=== PATIENT | female | born 1990 | race Caucasian/White ===

== ENCOUNTER 2024-06-21 08:08 | Emergency (ER) | payer OTHER, SELFPAY ==
[2024-06-21 08:16] VITALS: BP 116/65; PULSE 83; RESP 20; TEMP 36.4; O2SAT 100
--- NOTE | 2024-06-21 08:32 | ED.URI ---
HPI - URI/Sore Throat General Chief Complaint: Upper Respiratory Infection Stated Complaint: throat Time Seen by Provider: 06/21/24 08:30 Source: patient, RN notes reviewed and old records reviewed Mode of arrival: ambulatory Limitations: no limitations History of Present Illness HPI Narrative: 34 year old female with complaints of sore throat pain with redness and white exudates noted to back of throat and on tonsils for the past 3 days. Patient reports that she has no fever, denies any other symptoms. Patient reports that she has not taken any OTC medications for her discomfort. MD elicited complaint: sore throat and other (white exudates on tonsils and in throat) Onset (ago): day(s) (3) Pain scale (0-10): 2 Able to tolerate fluids by mouth: Yes Treatments prior to arrival: none Related Data Home Medications Medication Instructions Recorded Confirmed lamotrigine 200 mg tablet mg 06/21/24 tirzepatide (weight loss) 2.5 mg subcut 06/21/24 mg/0.5 mL subcutaneous pen injector (Zepbound) Allergies Allergy/AdvReac Type Severity Reaction Status Date / Time No Known Allergies Allergy Verified 06/21/24 08:20 Review of Systems Review of Systems: CONSTITUTIONAL: Denies malaise, chills, sweats, or fever. EYES: Denies visual changes, redness, or discharge. ENT: Reports no acute rhinorrhea, congestion, or sinus pain,no otalgia and positive sore throat with white exudates. CARDIOVASCULAR: Denies chest pain, palpitations, or edema. RESPIRATORY: Reports no cough.? Denies dyspnea. GASTROINTESTINAL: Denies abdominal pain, nausea, vomiting, diarrhea SKIN: Denies rash or itching. MUSCULOSKELETAL: Denies myalgia. NEUROLOGIC: Denies headache. All systems reviewed & are unremarkable except as noted in HPI and below PMFSH Past Medical History Medical History (Updated 06/21/24 @ 18:26 by Amalia Martínez NP) Bipolar 1 disorder, mixed Obesity Social History Social History (Updated 06/21/24 @ 18:24 by Amalia Martínez NP) Smoking status: Never smoker Alcohol intake: never Substance use type: does not use Gender identity (if verbalized by the patient): Female Comments At time of signature, agree with nursing past medical, surgical, social and family history. There is no relevant family history pertinent to the presenting complaint Exam Narrative: GENERAL: Well-appearing, well-nourished, and in no acute distress. HEAD: Normocephalic EYES: PERRLA, conjunctivae clear ENT: Nares clear, turbinates edematous and erythematous, clear discharge. Mucous membranes moist. TM pearly galloway with dull light reflex bilaterally; no tragal tenderness. Oropharynx erythematous without lesions. Tonsils red enlarged and with white exudates, no drooling, no hoarseness, no trismus, uvula midline, able to control own secretions NECK: Supple. No lymphadenopathy CHEST: Clear to auscultation, breath sounds equal. No wheezing, rhonchi, rales, or stridor. No respiratory distress, speaks in full sentences.no cough noted SAO2 100% on room air HEART: Regular rate and rhythm. No murmur heard. SKIN: Warm, dry, no rash. NEURO: Alert and oriented x3. PSYCH: Normal mood and affect Course Course Emergency Course: Patient is aware of diagnosis, understands and agrees to treatment plan.? Anticipatory guidance given.? Patient agrees to follow-up as directed and is aware of reasons to seek care at the emergency department. Portions of this record may have been created with voice recognition software Level of Care: Express Care Visit Vital Signs Vital signs: Vital Signs Temperature 36.4 C 06/21/24 08:16 Pulse Rate 83 06/21/24 08:16 Respiratory Rate 20 06/21/24 08:16 Blood Pressure 116/65 06/21/24 08:16 Pulse Oximetry 100 06/21/24 08:16 Oxygen Delivery Room Air 06/21/24 08:16 Temperature 36.4 C 06/21/24 08:16 Pulse Rate 83 06/21/24 08:16 Respiratory Rate 20 06/21/24 0
[2024-06-21 08:38] LABS: EDSTREPNEGPOS1 Negative (Negative)
== END 2024-06-21 08:49 | disposition home or self-care (01) ==
PROVIDERS: Emergency Provider Registered Nurse
DX: J03.90 Acute tonsillitis, unspecified (principal); E66.9 Obesity, unspecified; Z68.35 Body mass index [BMI] 35.0-35.9, adult
CPT/HCPCS: 87081; 87880; 99203; G0463